=== PATIENT | male | born 1960 | race Two or more races ===

== ENCOUNTER 2024-12-24 17:40 | Emergency (ER) | payer OTHER, SELFPAY ==
[2024-12-24 18:11] VITALS: BP 123/77; PULSE 89; RESP 18; TEMP 37.4; O2SAT 98; BMI 27.6
--- NOTE | 2024-12-24 18:43 | XR_ITS ---
Examination: PA lateral chest 2 views TECHNIQUE: Upright PA and lateral chest 2 views Standing time: December 24, 2024 1850 hours Comparison July 08, 2020 INDICATIONS: Coughing fever beginning 4 days ago FINDINGS: Accentuation of the basilar bronchovascular markings Normal heart size Normal lumbar pneumonia Moderate osteopenia IMPRESSION: Basilar bronchitis pattern
--- NOTE | 2024-12-24 18:45 | PD.EDURI ---
Upper Respiratory Inf. RME/HPI General Chief Complaint: Flu Like Symptoms Stated Complaint: COUGH AND FEVER SINCE WEDNESDAY Time Seen by Provider: 12/24/24 18:36 Arrival date/time: 12/24/24 17:40 Limitations: language barrier RME / HPI RME / HPI Narrative: 64-year-old male with past medical history of hyperlipidemia, HTN, DM presents for evaluation of cough x 3 days. Patient describes cough as productive with yellow/green sputum. Patient endorses subjective fever x 3 days and intermittent headache. Patient denies chest pain, arm pain, jaw pain, neck pain, hemoptysis, abdominal pain, nausea, vomiting, sore throat, wheezing. Denies known sick contacts. Denies recent travel. Denies history of blood clots. MD Complaint: fever and cough Relieving factors: nothing Exacerbating factors: nothing Related Data Home Medications ?Medication ?Instructions ?Recorded ?Confirmed insulin regular human 100 unit/mL 20 unit subcut QDAY 12/05/17 07/08/20 injection solution Previous Rx's ?Medication ?Instructions ?Recorded benzonatate 100 mg capsule 100 mg PO BID PRN cough #20 caps 12/24/24 Allergies Allergy/AdvReac Type Severity Reaction Status Date / Time No Known Allergies Allergy Verified 12/24/24 17:44 Review of Systems Constitutional Constitutional: Reports body ache(s), Denies chills, Denies fatigue, Denies fever(s), Reports headache(s) and Denies night sweats ENT Ears, Nose, Mouth, and Throat: Denies dizziness, Denies otalgia, Reports headache(s), Denies neck pain and Reports sore throat Cardiovascular Cardiovascular: Denies chest pain, Denies diaphoresis, Denies dyspnea and Denies radiating jaw, neck or arm pain Respiratory Respiratory: Reports change in phlegm color, Reports cough, Denies dyspnea, Reports excessive phlegm production, Denies hemoptysis, Reports pain with cough and Denies wheezing Gastrointestinal Gastrointestinal: Denies abdominal pain, Denies nausea and Denies vomiting Musculoskeletal Musculoskeletal: Denies abnormal gait, Denies back pain and Denies neck pain Integumentary/Breasts Skin/Breast: Denies lesions and Denies rash Neurologic Neurologic: Denies abnormal gait, Denies dizziness and Reports headache(s) Endocrine Endocrine: Denies fatigue Allergic/Immunologic Allergic/Immunologic: Denies wheezing Past Medical History Past Medical History CARDIAC: Negative Congestive Heart Failure RESPIRATORY: Negative Chronic Obstructive Pulmonary Disease (COPD) GENITOURINARY: Negative Renal Disease ENDOCRINE: Positive Endocrine Disorders and Diabetes Mellitus Type 1; Negative Diabetes Mellitus Type 2 Family History FAMILY HISTORY: Negative Family Neurologic Problems Social History SMOKING STATUS: Never smoker SECOND HAND EXPOSURE: No ED Exam General Limitations: Present language barrier General appearance: Present alert and in no apparent distress Head Head exam: Present atraumatic and normocephalic Eye Eye exam: Present normal appearance and EOMI ENT ENT exam: Present normal oropharynx, mucous membranes moist and TM's normal bilaterally Neck Neck exam: Present normal inspection and full ROM Chest Chest inspection: Present normal inspection and symmetric chest wall rise; Absent tenderness Respiratory Respiratory exam: Present normal lung sounds bilaterally; Absent respiratory distress or wheezes Cardiovascular Cardiovascular exam: Present regular rate and +S1 Abdominal Exam Abdominal exam: Present soft; Absent distention or tenderness Extremities Exam Extremities exam: Present normal inspection and full ROM Neurological Exam Neurological exam: Present alert Psychiatric Psychiatric exam: Present normal affect Skin Skin exam: Present warm and dry Course Quality Measures none Orders Category Date Time Status Bedside COVID-19 Antigen Test NOW Care 12/24/24 18:43 Completed Bedside Influenza A&B Antigen Test NOW Care 12/24/24 18:44 Completed CXR2 [XR chest 2V] Stat Exams 12/24/24 18:43 Completed Benzonatate [Tessalon] Med 12/24/24 18:43 Discontinued 100 mg PO X1 ONE Ketorolac Inj [Toradol Inj] Med 12/24/24 18:43 Discontinued 30 mg IM X1 ONE Vital Signs Vital signs: Vital Signs Temperature 99.3 F 12/24/24 18:11 Pulse Rate 89 12/24/24 18:11 Respiratory Rate 18 12/24/24 18:11 Blood Pressure 123/77 12/24/24 18:11 Pulse Oximetry (%) 98 12/24/24 18:11 Oxygen Delivery Method Room Air 12/24/24 18:11 Pulse ox 98% on room air, within normal limits. Upper Respiratory Infection MDM Narrative MDM Narrative:: 64-year-old male presented for evaluation of cough and bodyaches. Vital signs reassuring. Chest x-ray showed evidence of bronchitis without consolidation or concerning for pneumonia at this time. Viral swab significant for influenza A. Ultimately patient discharged with plan for symptomatic care and follow-up with primary care within the week. Patient stable at time of discharge. Patient data External records reviewed:: [facility] previous records Clinical information provided by:: patient Social determinants that could affect healthcare access:: none Patient has the following chronic illnesses:: Hyperlipidemia, diabetes, hypertension. How is presenting disease/condition affected by chronic disease/condition?: uneffected by Evaluation data The following diagnostics were reviewed and interpreted by me:: lab results and radiology exam(s) Lab and/or radiology exams considered but not ordered:: Blood work considered not ordered. Interpretation Summary: Influenza A positive. Bronchitis on chest x-ray. Medications / Prescriptions Medications or Prescriptions considered but not ordered:: Rx given. Medication administrations:: Medication Administration History Discontinued Medications Benzonatate (Benzonatate 100 Mg Capsule) 100 mg PO X1 ONE; Protocol Stop: 12/24/24 18:44 Last Admin: 12/24/24 20:25 Dose: 100 mg Documented By: LEONIDAS Ketorolac Tromethamine (Ketorolac Inj 60 Mg/2 Ml Vial) 30 mg IM X1 ONE Stop: 12/24/24 18:44 Last Admin: 12/24/24 20:29 Dose: 30 mg Documented By: LEONIDAS Rx given. Consultations Consultation(s) initiated? (list below): No Diagnosis Upper Respiratory Differential Diagnosis: upper respiratory infection, viral infection, bronchitis, influenza and other (Pneumonia.) Most likely diagnosis given after review of the tests above:: Influenza A, bronchitis. Admission Indicated Admission indicated?: not indicated Admission Request Was there a request for admission?: No Disposition Plan Disposition Plan: Discharge Discharge Attestation Discharge Attestation: The patient and all family members were given an opportunity to ask questions and understood the discharge instructions. Discharge instructions specifically effects, indications for sooner follow up or return to the emergency department, and the expected course of current diagnosis. Patient condition: Stable Discharge Plan Plan Patient Disposition: HOME (Self Care) Disposition Comment: stable Prescriptions/Referrals Prescriptions/Med Rec: New benzonatate 100 mg capsule 100 mg PO BID PRN (Reason: cough) Qty: 20 0RF No Action insulin regular human 100 unit/mL Solution 20 unit SUB-Q QDAY Referrals: No Primary/Family,Physician [Primary Care Provider] - In 1 week Problem List Clinical Impression: Influenza A, Bronchitis Patient/Caregiver Discharge Instructions Other Activity Instructions:: Take Tessalon Perles every 8 hours as needed for cough. Continue to hydrate well with adequate p.o. fluids. Take Tylenol or ibuprofen as needed for headache and fever. Follow-up with primary care within the week for reevaluation. Return to the ED if your symptoms worsen or change. Education Materials: ED Influenza (Adult) Print Language: Faroese Stand Alone Forms: Mariah Award Info., Patient Portal Info Letter PA/PROFESSOR OF FAMILY MEDICINE Supervising Physician PA/PROFESSOR OF FAMILY MEDICINE Supervising Physician: Dr. Duenas
[2024-12-24] MEDS: BENZONATATE 100 MG CAPSULE PO (20:25)
[2024-12-24] MEDS: KETOROLAC INJ 60 MG/2 ML VIAL 30 MG IM (20:29)
== END 2024-12-24 20:36 | disposition home or self-care (01) ==
PROVIDERS: Emergency Provider Emergency Medicine
DX: J10.1 Influenza due to other identified influenza virus with other respiratory manifestations (principal); J40 Bronchitis, not specified as acute or chronic; E78.5 Hyperlipidemia, unspecified; I10 Essential (primary) hypertension; E11.9 Type 2 diabetes mellitus without complications
CPT/HCPCS: 71046; 87400; 87811; 96372; 99283; J1885; A9270

== ENCOUNTER → 2025-01-30 | Outpatient (CLI) | payer OTHER, MEDICAID, SELFPAY ==
--- NOTE | 2025-01-30 15:52 | XR_ITS ---
Examination: Hand, left 3 views Technique: Hand AP, oblique, lateral 3 views Date and time of exam: January 30, 2025 1606 hours INDICATIONS: Hand pain months. FINDINGS: Moderate osteoarthritis radiocarpal first carpometacarpal joints Moderate osteoarthritis distal interphalangeal joints second through fifth digits and interphalangeal joint first digit No erosive arthritis No fractures IMPRESSION: Osteoarthritis as above
--- NOTE | 2025-01-30 15:52 | XR_ITS ---
Examination: Wrist, left 3 views Technique: Wrist AP, oblique, lateral 3 views Date and time of exam: January 30, 2025 1606 hours INDICATIONS: Left wrist pain this week FINDINGS: Severe osteopenia Sequencing Moderate osteoarthritis radiocarpal joint first carpometacarpal joint No acute fracture No erosive arthritis IMPRESSION: Moderate osteoarthritis as above
== END | disposition home or self-care (01) ==
LOC: CDIM 15:32
PROVIDERS: PCP Physician Assistant; Referring Provider Physician Assistant; Visit Provider Physician Assistant
DX: M19.042 Primary osteoarthritis, left hand (principal); M19.032 Primary osteoarthritis, left wrist
CPT/HCPCS: 73110; 73130